=== PATIENT | female | born 1975 | race African-American/Black ===

== ENCOUNTER 2023-04-12 13:17 | Emergency (ER) | payer MEDICAID ==
[~2023-04-12] VITALS: Ht 172.7 cm; Wt 100.0 kg
[2023-04-12] MEDS ORDERED: IBUPROFEN 800MG TABLET PO ONE (15:00)
[2023-04-12] MEDS ORDERED: IBUP-2030 MT (15:26)
[2023-04-12 16:51] VITALS: BP 135/91; PULSE 78; RESP 16; TEMP 98.6
[2023-04-12] MEDS ORDERED: IBUPROFEN 400MG TABLET PO NR (17:00)
== END 2023-04-12 16:57 | disposition home or self-care (01) ==
LOC: ER 13:17
DX: R07.89 Other chest pain (principal); R51.9 Headache, unspecified; V49.49XA Driver injured in collision with other motor vehicles in traffic accident, initial encounter; Y93.89 Activity, other specified; Y92.89 Other specified places as the place of occurrence of the external cause; Y99.8 Other external cause status
CPT/HCPCS: 71045; 99283